=== PATIENT | male | born 1995 | race Hispanic/Latino ===

== ENCOUNTER 2019-04-27 16:37 | Emergency (ER) | payer OTHER ==
--- NOTE | 2019-04-27 17:53 | RAD ---
Frontal radiograph pelvis: 04/27/2019 COMPARISON: None HISTORY: Trauma FINDINGS: There is no widening of the sacroiliac joints or the pubic symphysis. The pelvic ring is in tact. The femoral heads project normally over the respective acetabulum. No displaced fracture seen. IMPRESSION: No displaced fracture noted.
[2019-04-27] MEDS ORDERED: Ketorolac Tromethamine 60 MG/2 ML VIAL ONE (18:01)
[2019-04-27] MEDS ORDERED: Acetaminophen 500 MG TAB ONE (18:01)
--- NOTE | 2019-04-27 18:29 | RAD ---
LUMBAR SPINE THREE VIEWS: 04/27/19 COMPARISON: None. HISTORY: Fall, trauma, pain. FINDINGS: Lumbar pedicles appear intact on frontal imaging. Lateral examination demonstrates normal vertebral b cam height and alignment. No displaced fracture or evidence of dislocation. IMPRESSION: No acute findings. POS: [facility]
== END 2019-04-27 18:25 | disposition home or self-care (01) ==
LOC: NAV ERS 16:37
DX: M54.5 Low back pain (principal); F17.210 Nicotine dependence, cigarettes, uncomplicated; W01.0XXA Fall on same level from slipping, tripping and stumbling without subsequent striking against object, initial encounter
CPT/HCPCS: 72100; 72170; 80305; 96372; J1885

== ENCOUNTER 2022-03-10 10:04 | Emergency (ER) | payer OTHER ==
[2022-03-10] MEDS ORDERED: Boostrix 0.5 ML (Tdap) VIAL ONE (10:22)
[2022-03-10] MEDS ORDERED: Fentanyl 100 MCG/2 ML VIAL ONE (10:23)
[2022-03-10] MEDS ORDERED: Bacitracin 1 PK ONE ×2 (11:13→11:16)
[2022-03-10] MEDS ORDERED: Amoxicillin/Potassium Clav 875 MG TAB ONE (11:15)
== END 2022-03-10 11:48 | disposition home or self-care (01) ==
LOC: NAV ERS 10:04
DX: S61.441A Puncture wound with foreign body of right hand, initial encounter (principal); F17.210 Nicotine dependence, cigarettes, uncomplicated; Z23 Encounter for immunization; W26.8XXA Contact with other sharp object(s), not elsewhere classified, initial encounter
CPT/HCPCS: 90471; 90715; 96374; J3010